=== PATIENT | female | born 1975 | race Two or more races ===

== ENCOUNTER → 2024-03-16 | Outpatient (CLI) | payer MEDICAID, SELFPAY ==
--- NOTE | 2024-03-16 13:10 | XR_ITS ---
MRI abdomen, without contrast. MRCP Date and time of exam: March 16, 2024 1347 hours INDICATIONS: Worsening abdominal pain beginning 4 years ago, outside ultrasound examination this week enlarged common bile duct Technique: Multiple axial and coronal images of the abdomen have been obtained with the Siemens 1.5T MRI scanner. Images obtained included T1 weighted transverse images, T2-weighted transverse images, T2-weighted transverse images fat-suppressed, T2 weighted haste fat suppressed transverse images, T1 weighted images, in and out of phase images, T2-weighted coronal images, breath hold, T2 weighted haze coronal images as well as T2 weighted coronal thick slab images, MRCP. Findings: No focal liver lesions Suspicious for 4 mm stone in the gallbladder neck Common bile duct 4 mm 3 mm stone in the distal common bile duct No peripancreatic edema Spleen is not enlarged No hydronephrosis No ascites IMPRESSION: Suspicious for 4 mm stone in the gallbladder neck, gallbladder wall does not appear thickened 3 mm stone in the distal common bile duct, recommend ERCP follow-up
== END | disposition home or self-care (01) ==
LOC: SDIM 12:43
PROVIDERS: PCP Nurse Practitioner Family; Referring Provider Nurse Practitioner Family; Visit Provider Nurse Practitioner Family
DX: K82.9 Disease of gallbladder, unspecified (principal); K80.50 Calculus of bile duct without cholangitis or cholecystitis without obstruction
CPT/HCPCS: S8037; 74181

== ENCOUNTER → 2024-09-08 | Outpatient (CLI) | payer MEDICAID, SELFPAY ==
--- NOTE | 2024-09-08 07:00 | XR_ITS ---
Examination: MRI cervical spine without intravenous contrast Date and time of exam: September 08, 2024 at 0647 hours INDICATIONS: Neck pain radiating to both shoulders 8 months weakness in the arms Technique: Multiple axial and sagittal sections of the cervical spine to been obtained. T2 weighted sagittal sections, TR 3, 270, TE 117 T1-weighted sagittal sections, TR 500, TE 11 T1-weighted axial sections, TR 607, TE 12, axial sections TR 18, TE 27 and T2 weighted transverse sections, TR 3920, TE 122. Findings: Adequate alignment cervical vertebral bodies No cervical fracture Diffuse cervical disc desiccation Intact odontoid No localized enlargement cervical cord C2-C3 no disc protrusion C3-C4 no disc protrusion C4-C5 moderate left neural foraminal stenosis C5-C6 1 mm central osteophyte disc complex C6-C7 2 mm right paracentral disc protrusion C7-T1 no disc protrusion : IMPRESSION: C4-C5 moderate left neural foraminal stenosis
== END | disposition home or self-care (01) ==
LOC: SMRI 06:33
PROVIDERS: PCP Nurse Practitioner Family; Referring Provider Nurse Practitioner Family; Visit Provider Nurse Practitioner Family
DX: M48.02 Spinal stenosis, cervical region (principal); M25.78 Osteophyte, vertebrae; M50.223 Other cervical disc displacement at C6-C7 level
CPT/HCPCS: 72141

== ENCOUNTER → 2024-09-27 | Outpatient (CLI) | payer MEDICAID, SELFPAY ==
--- NOTE | 2024-09-27 11:30 | XR_ITS ---
Examination: Screening digital mammography, bilateral Computer aided detection 3-D breast Tomosynthesis, bilateral Date and time of exam: September 27, 2024 1109 hours Compared to mammograms dating to June 17, 2016 Indication: Screening Technique: Nonmagnified MLO, CC views of the breasts to been obtained, reconstructed from 3-D Tomosynthesis images. R2 computer aided detection program utilized for evaluation of suspicious masses and/or abnormal calcifications. 3-D Tomosynthesis images obtained. Findings: The breasts are heterogeneously dense, which may obscure small masses 8 mm focal asymmetry upper outer right breast Impression: BI-RADS Category 0: Incomplete: Need additional imaging evaluation 8 mm focal asymmetry upper outer right breast, recommend follow-up spot tomographic views of this asymmetry as well as right breast sonography to complete the workup.
== END | disposition home or self-care (01) ==
LOC: CDIM 10:59
PROVIDERS: PCP Nurse Practitioner Family; Referring Provider Nurse Practitioner Family; Visit Provider Nurse Practitioner Family
DX: Z12.31 Encounter for screening mammogram for malignant neoplasm of breast (principal); N64.89 Other specified disorders of breast
CPT/HCPCS: 77063; 77067